=== PATIENT | female | born 1965 | race Caucasian/White ===

== ENCOUNTER 2020-09-28 10:20 | Day surgery (SDC) | payer OTHER ==
[~2020-09-28] VITALS: Ht 160 cm; Wt 68.2 kg
[~2020-09-28 10:20] MED LIST: PEPCID40 MG PO
[2020-09-28 10:51] LABS: BASOPHILS 0.6 % (0-2); EOSINOPHILS 3.8 % (0-7); HEMATOCRIT 45.2 % (36.0-48.0); HEMOGLOBIN 14.8 g/dL (12-16); LYMPHOCYTE ABS# 2.25 10x3/uL (1.18-3.74); LYMPHOCYTES 43.3 % (15-50); MCH 30.3 pg (26.0-34.0); MCHC 32.7 g/dL (31.0-37.0); MCV 92.6 fL (80.0-100.0); MEAN PLATELET VOLUME 9.5 fL (7.4-10.4); MONOCYTES 9.8 % (2-11); NEUTROPHIL ABS# 2.21 10x3/uL (1.56-6.13); NEUTROPHILS 42.5 % (40-80); PLATELET COUNT 250 10x3/uL (130-400); RBC 4.88 10x6/uL (4.00-5.40); RDW 12.8 % (11.5-14.5); WBC 5.2 10x3/uL (4.8-10.8)
[2020-09-28 10:56] VITALS: BP 138/83; Ht 160 cm; Wt 68.2 kg
[2020-09-28 10:59] LABS: CALC OSMOLALITY 280 mosm/kg (275-300); CALCIUM 9.4 mg/dL (8.5-10.1); CARBON DIOXIDE 28.6 mmol/L (21.0-32.0); CHLORIDE - SERUM 101 mmol/L (98-107); CREATININE - SERUM 0.8 mg/dL (0.6-1.3); GLUCOSE 102 mg/dL (74-106); SODIUM 140 mmol/L (136-145); UREA NITROGEN 19 mg/dL (7-18); eGFR NON AFRICAN AMERICAN 78 mL/min (90-120)
--- NOTE | 2020-09-28 21:05 | NUR ---
THIS NURSE PERFORMS BLADDER SCAN ON PATIENT, SCAN SHOWS APPROX 405 ML SURGEON ON-CALL FOR DR LEAL PAGED REGARDING PATIENT'S INABILITY TO VOID. [address] MORFIN, ORDER RECEIVED TO PERFORM IN AND OUT CATH AND SEND PATIENT HOME. PATIENT AGREEABLE TO PLAN 2126 IN AND OUT CATHETERIZATION PERFORMED. PATIENT TOLERATED WELL. 450 ML YELLOW URINE DRAINED. RIGHT HAND PIV DC'D WITH TIP INTACT. PATIENT DRESSING IN PERSONAL CLOTHING
--- NOTE | 2020-09-28 21:50 | NUR ---
DISCHARGE INSTRUCTIONS REVIEWED WITH PATIENT AND SPOUSE, DISCHARGED HOME VIA WHEELCHAIR TO PRIVATE VEHICLE WITH SPOUSE
--- NOTE | 2020-10-06 17:10 | HP ---
PATIENT: ALBERTO MIRANDA MEDICAL RECORD: [id number] ACCOUNT: [id number] LOCATION:[facility] : 61 ADMISSION DATE: 09/28/20 PCP: ROXANN CROSS MS HISTORY AND PHYSICAL EXAMINATION HISTORY OF PRESENT ILLNESS: The patient has been having hemorrhoidal problems. She has a combination of internal hemorrhoidal symptoms including painless bleeding as well as some external hemorrhoidal symptoms as far as a perianal wetness, the feel of being unclean, returns to the bathroom, as well as some throbbing and itching. The risks, possible complications, alternatives to several hemorrhoidal procedures were discussed with the patient. She elects to proceed and elects for a procedure for prolapse and hemorrhoids. PAST MEDICAL AND SURGICAL HISTORY: She has had ankle surgery. She has had neck surgery as well. Gastroesophageal reflux. SOCIAL HISTORY: Unknown if she ever smoked. FAMILY HISTORY: Mother had osteoporosis. Father had heart disease. ALLERGIES: No known drug allergies. HOME MEDICATIONS: Last list of home medicines I have for the patient includes dicyclomine, Proctozone HC as well as a Suprep which she just took for this procedure. PHYSICAL EXAMINATION: GENERAL: The patient does not appear acutely ill. She does not appear chronically ill. VITAL SIGNS: Reviewed. EARS: External ears appear normal. EYES: Extraocular movements are intact. NECK: Trachea is midline. CHEST: No intercostal retractions. PULMONARY: Nonlabored. No stridor. IMPRESSION: 1. Internal hemorrhoidal prolapse. 2. Internal hemorrhoidal bleeding. 3. Intractable external hemorrhoidal symptoms. PLAN: Procedure for prolapse and hemorrhoids. TRANSINT:[id number] Voice Confirmation ID: [id number] DOCUMENT ID: [id number] cc: Keena Rodriguez NP, unknown. HISTORY AND PHYSICAL [id number] ALBERTO MIRANDA NICOLETTE VU MD at 1710 CC: [id number] DICTATION DATE: 09/28/20 172 [employer]: 09/28/20 180 [facility] 09/28/20 [id number] [place] [address]
--- NOTE | 2020-11-09 08:20 | OP ---
PATIENT NAME: LABERTO MIRANDA MEDICAL RECORD: [id number] :61 LOCATION:D.[facility] ADMISSION DATE: SURGEON: PHOENIX LEAL MD DATE OF OPERATION: 09/28/2020 PREOPERATIVE DIAGNOSES: 1. Bleeding internal hemorrhoids. 2. Intractable symptomatic external hemorrhoids. 3. Third-degree internal hemorrhoidal prolapse. POSTOPERATIVE DIAGNOSES: 1. Bleeding internal hemorrhoids. 2. Intractable symptomatic external hemorrhoids. 3. Third-degree internal hemorrhoidal prolapse. PROCEDURE: Procedure for prolapse and hemorrhoids. SURGEON: Phoenix Leal MD WELL PULLER HEAD: None. BLOOD LOSS: Minimal. ANESTHESIA: General. COMPLICATIONS: None. The risks, possible complications, and alternatives of the procedure were explained to the patient. She elected to proceed. The discussion specifically included, but was not limited to, bleeding requiring emergency reoperation, infection, mucosal anastomotic leakage as well as recurrent hemorrhoidal symptoms. OPERATIVE COURSE: The patient was greeted in the operating room electively on 09/28/2020. General anesthesia was induced by the anesthesia staff. The patient was placed in the lithotomy position. The buttocks were taped laterally. The anus and perineum were sterilely prepped and draped. U-shaped anal retractors were placed. I examined the anus. I noted no evidence of an anal fistula. No evidence of an anal fissure. The PPH dilator retractor was placed. The retractor was sutured to the surrounding anoderm with 2-0 silks. A mucosal pursestring suture of 2-0 Prolene was applied 1 cm cephalad to the clear retractor. The PPH stapling device was inserted with the anvil cephalad to the pursestring suture, which was then tightened and tied. The stapling device was engaged. It was held in place for 3 minutes and then fired. It was then removed. There was an entire donut of rectal mucosal and hemorrhoidal tissue within the stapling device. Bleeding along the anastomotic staple line was controlled with a [id number] 3-0 Vicryl. A combination of sterile preparation and Marcaine were used to infiltrate the perianal tissues. Gelfoam was applied within the anus and lower rectum. A topical anesthetic cream was applied to the external hemorrhoids. The patient was then extubated and conveyed to post-anesthesia care unit where she was in stable condition. OPERATIVE REPORT [id number] ALBERTO MIRANDA TRANSINT:[id number] Voice Confirmation ID: [id number] DOCUMENT ID: [id number] PHOENIX LEAL MD at 0820 CC: [id number] DICTATION DATE: 11/08/20 1314 PHYS ASSISTANT: 11/08/20 2324 [facility] 09/28/20 [address] [id number] [place] [id number]
== END 2020-09-28 21:50 | disposition home or self-care (01) ==
LOC: D.OPS 10:20
PROVIDERS: ATTEND Surgery
DX: K64.8 Other hemorrhoids (principal); K64.4 Residual hemorrhoidal skin tags; K64.2 Third degree hemorrhoids; K21.9 Gastro-esophageal reflux disease without esophagitis